=== PATIENT | female | born 1990 | race African-American/Black ===

== ENCOUNTER 2018-12-10 15:03 | Inpatient (IN) ==
[2018-12-10 16:15] LABS: BASO# 0.04 X1000 (0.0-0.2); BASO% 0.3 % (0.0-0.8); EOS# 0.01 X1000 (0.0-0.7); EOS% 0.1 % (0.0-10.0); HEMATOCRIT 30.9 % (37.0-47.0); HEMOGLOBIN 9.7 g/dL (12.0-16.0); IMM GRAN# 0.02 X1000 (0.0-0.04); IMM GRAN% 0.1 % (0.0-0.5); LYMPH# 1.64 X1000 (1.2-3.4); LYMPH% 11.1 % (20.5-51.1); MCH 27.8 PG (27-31); MCHC 31.4 g/dL (33-37); MCV 88.5 FL (81-99); MPV 11.2 FL (7.4-10.4); NEUT# 12.83 X1000 (1.4-6.5); NEUT% 86.4 % (42.2-75.2); PLT 357 X1000 (130-400); RBC 3.49 XMIL (4.2-5.4); RDW 14.5 % (11.5-14.5); WBC 14.84 X1000 (4.8-10.8)
[2018-12-10 16:18] LABS: INR 1.12; PROTIME 15.3 Seconds (11.0-16.0)
--- NOTE | 2018-12-10 16:20 | PROVIDER DOCUMENTATION ---
HPI-Respiratory General - General Chief Complaint: Shortness of Breath Stated Complaint: COUGHING BLOOD CHEST PAIN Time Seen by Provider: 12/10/18 16:03 Allergies/Adverse Reactions: Patient Allergies Allergy/AdvReac Type Severity Reaction Status Date / Time hydrocodone AdvReac migraines Verified 10/25/18 08:50 ondansetron [From Zofran] AdvReac HEADACHE Verified 10/25/18 08:50 Home Medications: Home Medication List Medication Instructions Recorded Confirmed Last Taken Type Apixaban [Eliquis] 5 mg PO BID #0 02/06/18 05/04/18 04/11/18 Rx Oxycodone HCl/Acetaminophen 1 ea PO Q6HR PRN #20 tab 02/28/18 05/04/18 04/11/18 Rx [Percocet 10-325 mg Tablet] Promethazine [Phenergan] 25 mg PO BID 03/17/18 05/04/18 04/09/18 History Gabapentin 100 mg PO TID PRN 04/11/18 05/04/18 04/10/18 History Amitriptyline [Elavil] 25 mg PO HS 05/04/18 05/04/18 Unknown History Naproxen 500 mg PO BID PRN PRN #60 tablet 06/12/18 Unknown Rx Oxycodone HCl/Acetaminophen 1 ea PO Q8H #12 tab 07/22/18 Unknown Rx [Percocet 7.5-325 mg Tablet] Promethazine [Phenergan] 25 mg PO Q6H PRN PRN #20 tab 07/22/18 Unknown Rx Metoclopramide [Reglan] 10 mg PO Q6HR PRN #40 tab 08/06/18 Unknown Rx - History of Present Illness-Resp Nature of Presenting Problem: reports cough and congestion for a few days. sob 3 days ago worsening today. no fever chills, history of PE and DVT of left leg. on eliquis. Review of Systems - Adult - REVIEW OF SYSTEMS - ADULT Constitutional: reports: no symptoms reported Eyes: reports: no symptoms reported Ears, Nose, Mouth & Throat: reports: no symptoms reported Cardiovascular: reports: no symptoms reported Respiratory: reports: no symptoms reported Gastrointestinal: reports: no symptoms reported Genitourinary: reports: no symptoms reported Musculoskeletal: reports: no symptoms reported Integumentary: reports: no symptoms reported Neurological: reports: no symptoms reported Psychiatric: reports: no symptoms reported Endocrine: reports: no symptoms reported Hematologic/Lymphatic: reports: no symptoms reported Allergic/Immunologic: reports: no symptoms reported All Other Systems: Reviewed and Negative Past History - Adult - PAST MEDICAL HISTORY-ADULT Review of Records: reports: Old Records Reviewed, Nursing Assessment Review, Medications Reviewed, Social history reviewed & non-contributory. Major Childhood Illnesses: reports: denies history Cardiovascular: reports: blood clots (on Eliquis), HTN, other (on anticoagulant Eliquis) Respiratory: reports: denies history Gastrointestinal: reports: other (perforated bowel during cesarian section in , ostomy) Obstetrical/Gynecological: reports: denies history Genitourinary: reports: kidney disease Musculoskeletal: reports: denies history Neurological: reports: denies history Psychiatric: reports: anxiety, depression Endocrine/Immune: reports: denies history Other Conditions: reports: denies history - PRIOR SURGERIES/PROCEDURES Surgical/Procedure History: reports: hysterectomy, , bowel surgery (perforated bowel during cesarian section in 2016, ostomy) - IMMUNIZATION STATUS Childhood Immunizations: See Nurse Assessment Flu Vaccine: See Nurse Assessment - FAMILY HISTORY Family History: reviewed, not pertinent - SOCIAL HISTORY Smoking: denies Substance Use: marijuana Alcohol Use Frequency: never Living Situation: family Physical Exam-General - PHYSICAL EXAM-ADULT Initial Vital Signs Reviewed: Yes - CONSTITUTIONAL General Appearance: appears well, mild distress - EYES Eyes: PERRL/EOMI, pink conjunctivae - HEAD, EARS, NOSE, MOUTH & THROAT HENMT: normocephalic/atraumatic, moist mucous membranes, normal ENT inspection - NECK Neck: non-tender, full range of motion - RESPIRATORY Respiratory: chest non-tender, lungs clear, respiratory distress, accessory muscle use. negative: decreased breath sounds - CARDIOVASCULAR Cardiovascular: normal peripheral pulses, tachycardia - GASTROINTESTINAL (ABDOMEN) Abdominal Exam: normal bowel sounds, non tender, soft - MUSCULOSKELETAL Back Exam: normal inspection, no CVA tenderness, no vertebral tenderness Extremity: normal range of motion, non-tender - SKIN Integumentary: normal color, normal turgor, warm/dry - NEUROLOGIC Neurologic: grossly normal, no motor/sensory deficits - PSYCHIATRIC Psych/Mental Status: normal thought process, oriented x 3 Progress - PLAN OF CARE/RESULTS Progress/Plan/Lab Results: Vital Signs - 8 hr 12/10/18 15:47 12/10/18 15:57 12/10/18 15:58 Temperature 100.3 F H Pulse Rate 108 H 117 H 112 H Respiratory Rate 20 46 H 41 H Blood Pressure 132/91 141/108 O2 Sat by Pulse Oximetry 95 92 L 12/10/18 16:00 12/10/18 16:10 12/10/18 16:20 Temperature Pulse Rate 113 H 115 H 113 H Respiratory Rate 32 H 22 41 H Blood Pressure O2 Sat by Pulse Oximetry 95 95 12/10/18 16:30 12/10/18 16:40 12/10/18 16:50 Temperature Pulse Rate 115 H 115 H 120 H Respiratory Rate 34 H 46 H 39 H Blood Pressure O2 Sat by Pulse Oximetry 99 100 12/10/18 17:00 12/10/18 17:10 12/10/18 17:23 Temperature Pulse Rate 119 H 124 H 130 H Respiratory Rate 33 H 28 H 25 H Blood Pressure O2 Sat by Pulse Oximetry 76 L 81 L 12/10/18 17:30 12/10/18 17:46 12/10/18 17:50 Temperature Pulse Rate 126 H 128 H 131 H Respiratory Rate 28 H 29 H 26 H Blood Pressure O2 Sat by Pulse Oximetry 12/10/18 18:00 12/10/18 18:12 12/10/18 18:20 Temperature Pulse Rate 136 H 142 H 133 H Respiratory Rate 22 21 26 H Blood Pressure O2 Sat by Pulse Oximetry 93 L 95 98 12/10/18 18:23 12/10/18 18:30 12/10/18 18:31 Temperature 99.5 F Pulse Rate 128 H 127 H Respiratory Rate 28 H 25 H Blood Pressure 146/108 O2 Sat by Pulse Oximetry 84 L 85 L 12/10/18 18:32 12/10/18 18:40 12/10/18 18:50 Temperature Pulse Rate 127 H 127 H 127 H Respiratory Rate 25 H 27 H 26 H Blood Pressure 145/111 O2 Sat by Pulse Oximetry 81 L 93 L 93 L 12/10/18 19:00 12/10/18 19:02 12/10/18 19:10 Temperature Pulse Rate 124 H 125 H 124 H Respiratory Rate 23 18 28 H Blood Pressure 144/107 O2 Sat by Pulse Oximetry 97 90 L 80 L 12/10/18 19:20 12/10/18 19:30 12/10/18 19:32 Temperature Pulse Rate 121 H 120 H 120 H Respiratory Rate 37 H 31 H 30 H Blood Pressure 143/109 O2 Sat by Pulse Oximetry 88 L 98 99 Laboratory Results - last 24 hr 12/10/18 12/10/18 12/10/18 15:32 15:32 15:32 WBC RBC Hgb Hct MCV MCH MCHC RDW Std Deviation Plt Count MPV Immature Gran % (Auto) Neut % (Auto) Lymph % (Auto) [place] % (Auto) Eos % (Auto) Baso % (Auto) Immature Gran # (Auto) Neut # (Auto) Lymph # (Auto) [place] # (Auto) Eos # (Auto) Baso # (Auto) PT 15.3 INR 1.12 Sodium 143 Potassium 3.2 L Chloride 102 Carbon Dioxide 23 L Anion Gap 18 BUN 7 L Creatinine 0.8 Estimated GFR/1.73 m2 > 60 BUN/Creatinine Ratio 9 Glucose 76 Calculated Osmolality 282 Calcium 9.9 Total Bilirubin 1.29 H AST 9 L ALT < 5 L Alkaline Phosphatase 72 Total Protein 7.4 Albumin 4.0 Globulin 3.4 Albumin/Globulin Ratio 1.2 Amylase 20 Lipase 7 L Serum , Qual Urine Source Urine Color Urine Turbidity Urine pH Ur Specific [place] Urine Protein Ur Glucose (Stick) Ur Ketones (Stick) Urine Blood Urine Nitrite Urine Bilirubin Urobilinogen Dipstick Urine Leukocytes Urine WBC (Auto) Urine RBC (Auto) U Epithel Cells (Auto) Urine Bacteria (Auto) Blood Type B POSITIVE Antibody Screen NEGATIVE 12/10/18 12/10/18 12/10/18 15:32 15:32 17:22 WBC 14.84 H RBC 3.49 L Hgb 9.7 L Hct 30.9 L MCV 88.5 MCH 27.8 MCHC 31.4 L RDW Std Deviation 14.5 Plt Count 357 MPV 11.2 H Immature Gran % (Auto) 0.1 Neut % (Auto) 86.4 H Lymph % (Auto) 11.1 L [place] % (Auto) 2.0 Eos % (Auto) 0.1 Baso % (Auto) 0.3 Immature Gran # (Auto) 0.02 Neut # (Auto) 12.83 H Lymph # (Auto) 1.64 [place] # (Auto) 0.30 Eos # (Auto) 0.01 Baso # (Auto) 0.04 PT INR Sodium Potassium Chloride Carbon Dioxide Anion Gap BUN Creatinine Estimated GFR/1.73 m2 BUN/Creatinine Ratio Glucose Calculated Osmolality Calcium Total Bilirubin AST ALT Alkaline Phosphatase Total Protein Albumin Globulin Albumin/Globulin Ratio Amylase Lipase Serum , Qual NEGATIVE Urine Source CLEAN CATCH Urine Color YELLOW Urine Turbidity CLEAR Urine pH 7.0 Ur Specific [place] 1.018 Urine Protein TRACE A Ur Glucose (Stick) NEGATIVE Ur Ketones (Stick) 60 A Urine Blood NEGATIVE Urine Nitrite NEGATIVE Urine Bilirubin NEGATIVE Urobilinogen Dipstick 2 A Urine Leukocytes NEGATIVE Urine WBC (Auto) <10 Urine RBC (Auto) <10 U Epithel Cells (Auto) <10 Urine Bacteria (Auto) NEGATIVE Blood Type Antibody Screen Orders Category Date Time Status IV Insertion ORDERED Care 12/10/18 15:18 Completed [facility] Loc DIRECTED Care 12/10/18 15:19 Active NPO Diet 12/10/18 15:19 Active CHEST-2 VIEWS [RAD] Stat Exams 12/10/18 15:18 Completed CTA [CT ANGIOGRM PULMONARY ARTERIES] [CT] Stat Exams 12/10/18 16:17 Completed AMYLASE [CHEM] Stat Lab 12/10/18 15:32 Completed CBC WITH ELECTRONIC DIFF [HEME] Stat Lab 12/10/18 15:32 Completed COMPREHENSIVE METABOLIC PANEL [CHEM] Stat Lab 12/10/18 15:32 Completed HIV AB SCREEN [HH] Stat Lab 12/10/18 19:52 Ordered LIPASE [CHEM] Stat Lab 12/10/18 15:32 Completed TEST-SERUM [PREG] Stat Lab 12/10/18 15:32 Completed PROTIME WITH INR [COAG] Stat Lab 12/10/18 15:32 Completed TYPE & SCREEN [BBK] Stat Lab 12/10/18 15:32 Completed URINALYSIS W/POSS RFLX CULT [URINALYSIS] Stat Lab 12/10/18 17:22 Completed Ketorolac [Toradol] Med 12/10/18 18:24 Discontinued 15 mg IV NOW ONE Ns + KCl 40 Meq 1,000 ml Med 12/10/18 19:53 Ordered IV 125 mls/hr Result Diagrams: 12/10/18 15:32 12/10/18 15:32 - CONSULTS/PCP/HOSPITALIST Notification #1 *Consult/PCP/Hospitalist*: Dr. Fox Time Discussed: 19:54 Consult Disposition: Admit Departure - Departure Date of Disposition Decision: 12/10/18 Time of Disposition Decision: 19:55 DIAGNOSIS: Pleural effusion, Hypokalemia Disposition: HOME 01 Certified Medical Emergency: Emergent Condition: Stable Referrals and Follow-Ups: JED SHIN [Primary Care Provider] - - Critical Care Note This patient required my direct & personal management of CC.: No Attestation - Physician/ OPAL Attestation Patient care was provided by Advanced Practice Provider:: No The physician spent face to face time with patient:: Yes Advanced Practice Provider documentation review:: Supervising physician onsite and consulted in the evaluation and care of this patient. The physician did have a face to face encounter with the patient.
[2018-12-10 16:29] LABS: AGAP 18; ALB/GLOB RATIO 1.2; ALKALINE PHOSPHATASE 72 U/L (32-104); AMYLASE 20 U/L (20-200); BUN 7 mg/dL (8-22); CALCIUM 9.9 mg/dL (8.8-10.2); CHLORIDE 102 mmol/L (98-107); COSMO 282; CREATININE 0.8 mg/dL (0.5-0.9); ESTIMATED GFR > 60; GLUCOSE 76 mg/dL (70-104); GOT 9 U/L (10-30); GPT < 5 U/L (10-36); LIPASE 7 U/L (13-60); POTASSIUM 3.2 mmol/L (3.5-5.1); SODIUM 143 mmol/L (136-145); TCO2 23 mmol/L (25-35); TOTAL BILIRUBIN 1.29 mg/dL (0.20-1.00); TOTAL PROTEIN 7.4 g/dL (6.3-8.3)
[2018-12-10 17:30] LABS: URINE SOURCE CLEAN CATCH
--- NOTE | 2018-12-10 17:34 | ED EKG INTERP ---
This chart was entered by Marilyn Alves Scribe, acting as scribe for Benjamin Roberson MD. EKG Interpretation - EKG Time of EKG reading by physician:: 15:10 EKG Read and Signed by:: Benjamin Roberson EKG Interpretation (*Must complete 3 of following elements*): Abnormal (T wave abnormality, consider lateral ischemia) Rate: 117 Rhythm: sinus tachycardia Comments: possible left atrial enlargement; Attestation - Physician/ OPAL Attestation The physician spent face to face time with patient:: No Advanced Practice Provider documentation review:: Supervising physician onsite and consulted in the evaluation and care of this patient. The physician did not have a face to face encounter with the patient. This chart was documented by the indicated scribe, (Marilyn Alves Scribe) and accurately reflects the services I performed and decisions made by me, Benjamin Roberson MD, as attested by the provider's signature.
[2018-12-10 17:59] LABS: BILIRUBIN URINE NEGATIVE (NEGATIVE); BLOOD URINE NEGATIVE (NEGATIVE); COLOR YELLOW; GLUCOSE URINE NEGATIVE (NEGATIVE); KETONE URINE 60 mg/dL (NEGATIVE); LEUKOCYTES URINE NEGATIVE (NEGATIVE); NITRITE URINE NEGATIVE (NEGATIVE); PROTEIN URINE TRACE mg/dL (NEGATIVE); SP GRAVITY URINE 1.018; TURBIDITY URINE CLEAR (CLEAR); UROBILINOGEN URINE 2 mg/dL (NORMAL)
[2018-12-10 18:01] LABS: UR EPITHELIAL CELLS <10 /HPF (<10); URINE BACTERIA NEGATIVE /HPF; URINE RBC <10 /HPF (<10); URINE WBC <10 /HPF (<10)
--- NOTE | 2018-12-10 18:18 | Diag Imaging Result Doc PS360 ---
EXAM: CHEST-2 VIEWS INDICATION: vomiting TECHNIQUE: 2 views COMPARISON: 08/06/2018 FINDINGS: There are perihilar infiltrates and infiltrates at the lung bases suggesting pulmonary edema +/- pneumonia. There is blunting of the right costophrenic angle that is also seen on the previous study indicating pleural scarring likely with a superimposed small effusion. There is a small effusion on the left as well. There is cardiomegaly that has developed since the previous study. IMPRESSION: Interval development of cardiomegaly and bilateral central and bibasilar infiltrates with small effusions suggesting pulmonary edema +/- pneumonia. Electronically signed by Pierre Olsen 12/10/2018 6:16 PM
[2018-12-10] MEDS ORDERED: TORADOL IV ONE (18:24)
--- NOTE | 2018-12-10 18:41 | Diag Imaging Result Doc PS360 ---
EXAM: CT ANGIOGRM PULMONARY ARTERIES INDICATION: PE TECHNIQUE: This exam was performed using automated exposure control, adjustment of mA or kV according to patient size, and/or use of iterative reconstruction technique. Thin section axial images and 3-D MIPS were obtained. COMPARISON: 11/03/2018 FINDINGS: There is no evidence of pulmonary embolism. There is no evidence of aortic dissection or aneurysm. There is at least mild cardiomegaly that has developed since the previous study. There are patchy infiltrates seen throughout both lungs. There is also interlobular septal thickening. This suggests pulmonary edema. This pattern is also seen in alveolar proteinosis. There are bilateral small pleural effusions and bibasilar atelectasis. Review of the upper abdomen reveals hepatic steatosis that was not clearly present on the previous study. IMPRESSION: 1.Extensive patchy groundglass infiltrates and interlobular septal thickening indicating edema. This pattern can also be seen with alveolar proteinosis. 2.Bilateral small pleural effusions. 3.Interval development of cardiomegaly. 4.Development of hepatic steatosis. 5.No evidence of pulmonary embolism. Electronically signed by Pierre Olsen 12/10/2018 6:38 PM
[2018-12-10] MEDS ORDERED: NS + KCL 40 MEQ 1,000 ML IV ONE (19:53)
--- NOTE | 2018-12-10 21:38 | HISTORY AND PHYSICAL ---
PRIMARY CARE PHYSICIAN: Dr. Virginia Bonilla. CHIEF COMPLAINT: Shortness of breath and chest pain x1 week. HISTORY OF PRESENTING ILLNESS: A 28-year-old female with a history of pulmonary embolism and DVT on anticoagulation had presented to the emergency department with 1-week history of having chest pain and shortness of breath. The patient states that she was having some fevers during this time. She was evaluated in the emergency department. She did have imaging done, which did show the possibility of pneumonia. Subsequently, she will need admission for further management. At the time of my examination, she denied any headache, nausea, vomiting, diarrhea, hemoptysis, melena, but complained of shortness of breath and chest discomfort. PAST MEDICAL HISTORY: Includes pulmonary embolism and DVT. PAST SURGICAL HISTORY: Abdominal surgery and hysterectomy. ALLERGIES: Zofran and hydrocodone. CURRENT MEDICATIONS: Include amitriptyline 25 mg p.o. at bedtime, Eliquis 5 mg p.o. b.i.d., gabapentin 100 mg p.o. t.i.d., Reglan 10 mg p.o. q.6 hours, Percocet 10/325 one p.o. q.6 hours. SOCIAL HISTORY: Ten pack years history of smoking. Denies any history of alcohol, admits to occasional marijuana use. FAMILY HISTORY: No history of coronary disease. REVIEW OF SYSTEMS: Fourteen-point review of systems as listed in HPI. Other systems negative. PHYSICAL EXAMINATION: GENERAL: Cooperative, friendly female. She is resting more comfortably now. VITAL SIGNS: Temperature 100.3 degrees, pulse 108, respirations 20, blood pressure 132/91. HEENT: Atraumatic, normocephalic. Extraocular movements intact. PERRLA. NECK: No masses. CHEST: Bibasilar rales. CARDIOVASCULAR: Regular rate and rhythm. S1 and S2. ABDOMEN: Soft. Positive bowel sounds. EXTREMITIES: No edema. NEUROLOGIC: She is awake, alert, oriented x3. GENITOURINARY: No bladder distention. SKIN: Warm. LABORATORIES AND STUDIES: WBCs 14.84, hemoglobin 9.7, hematocrit 30.9, platelets 357,000. Sodium 143, potassium 3.2, chloride 102, CO2 23, BUN is 7, creatinine 0.8, glucose is 76. Chest x-ray shows bibasilar infiltrates with small effusions suggestive of pulmonary edema plus or minus pneumonia. ASSESSMENT: This is a 28-year-old female with a history of pulmonary embolism and deep venous thrombosis who had presented to emergency department with 1-week history of chest discomfort and shortness of breath. She was evaluated in the emergency department. She had imaging done that was suspicious for pneumonia. Subsequently, she will need admission for further management. 1. Suspected pneumonia. 2. History of deep venous thrombosis and pulmonary embolus on anticoagulation. 3. Ongoing tobacco abuse. PLAN: 1. We will admit patient to medical floor with telemetry. 2. We will check blood cultures and start patient on IV antibiotics. 3. We will resume her anticoagulation. 4. Counseled patient on smoking cessation. 5. We will continue patient's anticoagulation and will suffice for deep venous thrombosis prophylaxis. 6. We will continue to follow and reassess. Make further recommendations based on the patient's clinical course. cc: Theron Fox MD
[2018-12-10] MEDS ORDERED: PHENERGAN IV PRN (23:04)
[2018-12-10] MEDS ORDERED: SODIUM CHLORIDE 0.9% INJ PRN (23:04)
[2018-12-10] MEDS: DUONEB (A & A) INH SCH (23:24)
[2018-12-10] MEDS: MORPHINE IV PRN (23:42)
[2018-12-11] MEDS: MUCINEX PO SCH ×3 (02:26→21:44)
[2018-12-11] MEDS: DUONEB (A & A) INH SCH ×6 (02:47→22:49)
[2018-12-11] MEDS: TESSALON PO PRN ×2 (02:56→07:58)
[2018-12-11 06:30] LABS: BASO# 0.04 X1000 (0.0-0.2); BASO% 0.2 % (0.0-0.8); HEMATOCRIT 29.9 % (37.0-47.0); HEMOGLOBIN 9.6 g/dL (12.0-16.0); IMM GRAN# 0.05 X1000 (0.0-0.04); IMM GRAN% 0.3 % (0.0-0.5); LYMPH# 1.02 X1000 (1.2-3.4); LYMPH% 5.7 % (20.5-51.1); MCH 28.4 PG (27-31); MCHC 32.1 g/dL (33-37); MCV 88.5 FL (81-99); MONO# 0.35 X1000 (0.11-0.59); MPV 10.9 FL (7.4-10.4); NEUT% 91.8 % (42.2-75.2); PLT 335 X1000 (130-400); RBC 3.38 XMIL (4.2-5.4); RDW 14.3 % (11.5-14.5); WBC 17.76 X1000 (4.8-10.8)
[2018-12-11 06:46] LABS: LYMPHS 10 % (21-51); SEGS 90 % (42-75)
[2018-12-11 06:48] LABS: AGAP 15; BUN 9 mg/dL (8-22); CALCIUM 8.9 mg/dL (8.8-10.2); CHLORIDE 105 mmol/L (98-107); COSMO 281; CREATININE 0.7 mg/dL (0.5-0.9); ESTIMATED GFR > 60; GLUCOSE 113 mg/dL (70-104); POTASSIUM 3.5 mmol/L (3.5-5.1); SODIUM 141 mmol/L (136-145); TCO2 21 mmol/L (25-35)
[2018-12-11] MEDS: MORPHINE IV PRN ×4 (07:58→21:10)
[2018-12-11] MEDS: LEVAQUIN 500 MG/D5W 500 MG/100 ML IVPB IV SCH (08:22)
--- NOTE | 2018-12-11 08:47 | EKG Report ---
Test Performed on : 12/10/2018 6:00:00 PM Test Reason : ED. NO EKG ORDER FOR MUSE Blood Pressure : / mmHG Vent. Rate : 135 BPM Atrial Rate : 135 BPM P-R Int : 126 ms QRS Dur : 068 ms QT Int : 316 ms P-R-T Axes : 047 043 115 degrees QTc Int : 474 ms Sinus tachycardia. Nonspecific T wave abnormality Abnormal ECG When compared with ECG of 22-JUL-2018 14:00, Vent. rate has increased BY [address] no longer elevated in Lateral leads Nonspecific T wave abnormality now evident in Lateral leads Unconfirmed Result
[2018-12-11] MEDS ORDERED: REGLAN PO PRN (09:33)
[2018-12-11] MEDS ORDERED: NEURONTIN PO PRN (09:33)
[2018-12-11] MEDS: ELIQUIS PO SCH ×2 (09:48→21:44)
[2018-12-11] MEDS ORDERED: LASIX IV SCH (10:00)
[2018-12-11 10:04] LABS: HIV ANTIBODY SCREEN SEE COMMENTS
[2018-12-11] MEDS ORDERED: LASIX IV ONE (10:48)
[2018-12-11 11:07] LABS: ALLEN TEST NO; BE -2.5 mmoll (-3.0-3.0); BLOOD TYPE ARTERIAL; HCO3-(ACT) 22.9 mmoll (20.0-26.0); METHB 1.4 % (0.0-1.5); MODALITY CANNULA; O2(CT) 12.9 mL/dL (15.0-23.0); O2HB 92.4 % (95.0-99.0); PCO2(98.6) 29 mmHg (35-45); PO2(98.6) 66 mmHg (60-100); SAMPLE BLOOD; THB 9.9 g/dL (11.5-17.4); pH(98.6) 7.46 (7.35-7.45)
--- NOTE | 2018-12-11 12:51 | PROGRESS NOTE ---
DATE: 12/11/2018 SUBJECTIVE: The patient reports feeling very short of breath. Reports a sensation of shortness of breath but no chest pain reported. OBJECTIVE: Vital Signs: Temperature 98.5 degrees, heart rate 120, respiratory rate 26, blood pressure 140/115, O2 saturation 100% on room air. General: This is a 28-year-old female lying in bed, in no acute distress. Cardiovascular: S1, S2 heard. No murmurs, gallops, or rubs. The patient is tachycardic. Respiratory: Crackles in both pulmonary bases. Patient is not using any accessory muscles or having work of breathing. Abdomen: Soft, a little bit distended, but nontender to palpation. Bowel sounds present. No organomegaly. Extremities: No clubbing, cyanosis, or edema. Peripheral pulses present in both legs. Neurological: Patient is alert and oriented x3. Moves all 4 extremities. LABORATORY DATA: White cell count 17.76, hemoglobin 9.6, hematocrit 29.9, platelets 335,000. Normal BMP. ASSESSMENT AND PLAN: 1. Acute respiratory failure. The patient reports this morning feeling very short of breath. Upon my examination, we found marked crackles in both pulmonary bases. So, at this point, what we are going to do is start Lasix 80 mg now and then 40 mg IV q.12 hours until she improves. The CT angiogram of the chest that we have done because we were suspecting pulmonary embolism reported extensive patchy ground-glass infiltrates and interlobular septal thickening indicating edema. The patient is receiving also Levaquin 30 mg IV q.24 hours. We will continue with the same management. We are going to consult Pulmonary as well. 2. History of deep venous thrombosis and pulmonary embolism. We are going to restart Eliquis at this point. 3. Tobacco abuse. Patient has been counseled to stop smoking tobacco. 4. Disposition. Patient has been sent to the [facility] unit because of this shortness of breath. We will continue to monitor this patient closely. cc: Tadeo Renee MD
--- NOTE | 2018-12-11 15:24 | ECHO REPORT ---
ORDER DATE: 12/11/2018 ECHOCARDIOGRAPHIC MEASUREMENTS: 1. Interventricular septum 1.0/ 2. Left ventricular posterior wall 1.0. 3. Diastolic diameter 4.7. 4. Left ventricular systolic diameter 4.4. 5. Left atrium 3.0. 6. Aorta 2.9. SUMMARY: 1. There is mild left atrial enlargement. 2. Aortic valve leaflets are trileaflet. 3. Pulmonic valve was normal. 4. Mitral valve was normal. 5. Tricuspid valve was normal. 6. There is no aortic stenosis or regurgitation. 7. There is mild mitral regurgitation. 8. Mild tricuspid regurgitation. Peak velocity across the tricuspid valve was 3.2 m/sec. 9. Pulmonary artery systolic pressure of 53 mmHg. 10. Left ventricular cavity size is normal with severely reduced systolic function. Estimated ejection fraction of 20%. There is severe global hypokinesis. 11. There is trivial anterior echo-free space suggestive of pericardial effusion. There is no evidence of tamponade. 12. There is no obvious intracardiac mass or thrombus seen. 13. There is diastolic dysfunction. cc: MD Tadeo Boland MD
[2018-12-11] MEDS: ELAVIL PO SCH (21:44)
[2018-12-11] MEDS: LASIX IV SCH (22:30)
[2018-12-12] MEDS: DUONEB (A & A) INH SCH ×6 (03:31→23:23)
[2018-12-12] MEDS: MORPHINE IV PRN ×5 (03:46→21:35)
[2018-12-12 04:55] LABS: ALLEN TEST YES; BE 4.2 mmoll (-3.0-3.0); BLOOD TYPE ARTERIAL; HCO3-(ACT) 28.1 mmoll (20.0-26.0); METHB 0.8 % (0.0-1.5); O2(CT) 10.7 mL/dL (15.0-23.0); PCO2(98.6) 40 mmHg (35-45); PO2(98.6) 55 mmHg (60-100); SAMPLE BLOOD; THB 8.5 g/dL (11.5-17.4); pH(98.6) 7.46 (7.35-7.45)
[2018-12-12 04:56] LABS: MODALITY ROOM AIR
[2018-12-12 05:02] LABS: O2HB 88.8 % (95.0-99.0)
[2018-12-12 07:21] LABS: BASO# 0.03 X1000 (0.0-0.2); BASO% 0.3 % (0.0-0.8); EOS# 0.28 X1000 (0.0-0.7); EOS% 2.7 % (0.0-10.0); HEMATOCRIT 28.6 % (37.0-47.0); HEMOGLOBIN 8.9 g/dL (12.0-16.0); LYMPH# 1.85 X1000 (1.2-3.4); LYMPH% 18.1 % (20.5-51.1); MCH 27.6 PG (27-31); MCHC 31.1 g/dL (33-37); MCV 88.5 FL (81-99); MONO# 0.47 X1000 (0.11-0.59); MONO% 4.6 % (1.7-9.3); MPV 11.3 FL (7.4-10.4); NEUT# 7.57 X1000 (1.4-6.5); NEUT% 74.3 % (42.2-75.2); PLT 303 X1000 (130-400); RBC 3.23 XMIL (4.2-5.4); RDW 14.3 % (11.5-14.5)
[2018-12-12 07:51] LABS: AGAP 10; BUN 11 mg/dL (8-22); CALCIUM 8.7 mg/dL (8.8-10.2); CHLORIDE 101 mmol/L (98-107); COSMO 276; CREATININE 0.8 mg/dL (0.5-0.9); ESTIMATED GFR > 60; GLUCOSE 89 mg/dL (70-104); POTASSIUM 2.7 mmol/L (3.5-5.1); SODIUM 139 mmol/L (136-145); TCO2 28 mmol/L (25-35)
[2018-12-12] MEDS: LEVAQUIN 500 MG/D5W 500 MG/100 ML IVPB IV SCH (08:03)
[2018-12-12] MEDS: LASIX IV SCH ×2 (08:04→21:36)
[2018-12-12] MEDS: ELIQUIS PO SCH ×2 (09:46→21:36)
[2018-12-12] MEDS: MUCINEX PO SCH ×2 (09:47→21:35)
[2018-12-12] MEDS ORDERED: KLOR-CON PO ONE ×2 (10:48→12:51)
[2018-12-12] MEDS ORDERED: POTASSIUM CHLORIDE 20 MEQ/SWI 20 MEQ/100 ML IVPB IV SCH (11:00)
--- NOTE | 2018-12-12 11:24 | PROGRESS NOTE ---
DATE: 12/12/2018 SUBJECTIVE: The patient reports definitely much better, not feeling short of breath at all. No chest pain noted. OBJECTIVE: Vital Signs: Temperature 99.3 degrees, heart rate 118, respiratory rate 18, blood pressure 129/88, O2 saturation 100% on 3 L nasal cannula. General Examination: This is a 28-year- old, female lying in bed, in no acute distress. Cardiovascular Examination: S1 and S2 heard. No murmurs, gallops, or rubs. Regular rate and rhythm. Respiratory Examination: Crackles in both pulmonary bases. Definitely better in comparing with yesterday. Patient is not using any accessory muscles or having work of breathing. Abdomen: Soft. Nontender to palpation. Bowel sounds present. No organomegaly. Extremities: No clubbing, cyanosis, or edema. Peripheral pulses present in both legs. Neurological Examination: The patient is alert and oriented x3. Moves 4 extremities. Laboratory Data: Repeat potassium is 2.7 today. ASSESSMENT AND PLAN: 1. Acute respiratory failure secondary to newly diagnosed cardiomyopathy. The patient was admitted to the hospital for suspicion for pneumonia. Actually, the CT of the chest did show pulmonary edema. The patient was extremely short of breath yesterday but she responded dramatically to Lasix. We have ordered an echocardiogram which basically showed an ejection fraction of 20%. On getting more information for this patient, she reported that after she gave to her 2-year-old son, she started noticing some shortness of breath that was progressively getting worse. I do not know at this point if this is peripartum cardiomyopathy. The other side, I do not think this cardiomyopathy would be secondary to any viral infection because she reports no sick contacts at this time. We have consulted cardiology for further evaluation and treatment. At this point, we will continue with Lasix 40 mg intravenous every 12 hours. 2. History of deep venous thrombosis and pulmonary edema. We will continue with Eliquis. 3. Tobacco abuse. Patient has been counseled to stop smoking. 4. Disposition. We will continue to monitor this patient closely. cc: Tadeo Renee MD
[2018-12-12] MEDS: COZAAR PO SCH (11:43)
[2018-12-12] MEDS: LOPRESSOR PO SCH ×2 (11:47→21:35)
[2018-12-12 14:09] LABS: UR AMPHETAMINES QUAL NONE DETECTED (NONE DETECT); UR BARBITUATES QUAL NONE DETECTED (NONE DETECT); UR BENZODIAZEPIN QUAL NONE DETECTED (NONE DETECT); UR CANNABINOIDS QUAL PRESUMPTIVE POSITIVE (NONE DETECT); UR COCAINE QUAL NONE DETECTED (NONE DETECT); UR METHADONE QUAL NONE DETECTED (NONE DETECT); UR OPIATES QUAL PRESUMPTIVE POSITIVE (NONE DETECT); UR OXYCODONE QUAL NONE DETECTED (NONE DETECT); UR PCP QUAL NONE DETECTED (NONE DETECT)
--- NOTE | 2018-12-12 15:58 | CONSULTATION ---
DATE OF CONSULTATION: 12/12/2018 IMPRESSION: 1. Acute systolic heart failure. 2. Cardiomyopathy, probably nonischemic. Consider possible viral etiology. 3. Prior deep vein thrombosis/pulmonary embolus. Patient on chronic anticoagulation. 4. Polysubstance abuse. RECOMMENDATIONS: 1. Diurese as you were doing. 2. Add angiotensin receptor blocking agent and beta opal. 3. Smoking cessation and cessation of polysubstance abuse recommended. HISTORY: This 28-year-old female with past history of previous complicated section/hysterectomy in March 2017, previous pulmonary embolus in September 2017, smoking and polysubstance abuse was admitted with a 1-week history of cough which was worse when she was supine. She also had orthopnea. She coughed up some red tinged sputum. There was some sharp left upper parasternal discomfort provoked by coughing. She came to the emergency room with worsening shortness of breath and orthopnea, as well as cough. Chest CT scan revealed no evidence of pulmonary embolus and suggested pulmonary edema. Echocardiography indicated left ventricular ejection fraction 20% with moderate pulmonary hypertension. She is improving with diuresis. Cardiology consultation was requested because of her cardiomyopathy and new congestive heart failure. She has history of smoking marijuana, chronic cigarette use, and previous cocaine snorting in the past. She has not used cocaine since September of this year. PAST MEDICAL HISTORY: 1. Status post previous section with her first child, who is now 12 years old. 2. Status post complicated section and hysterectomy with her second child in March 2017. She apparently had a bowel injury with her hysterectomy and required surgical repair. She had an ostomy for a period of time and was on TPN. This was apparently a complicated hospital course. She was living in [place] at the time. 3. Status post takedown of ostomy. 4. Status post pulmonary embolus/DVT in September 2017. She relates she had already been on anticoagulation of Eliquis, but reports inconsistent compliance with this. 5. History of ectopic with her first , at which time she also had a unilateral salpingo-oophorectomy with section. 6. Polysubstance abuse as outlined above. ALLERGIES: She is allergic to hydrocodone and ondansetron. MEDICATIONS PRIOR TO ADMISSION: As listed. It is noteworthy that she has been on Eliquis 5 mg p.o. b.i.d. on a long-term basis. SOCIAL HISTORY: She is single. She is disabled. She has 2 children, one age 11 going onto age 12 and the other approaching age 2. She smokes cigarettes. She smokes marijuana occasionally. She also has history of snorting cocaine; last reported use was in September of this year. FAMILY HISTORY: Negative for premature heart disease. REVIEW OF SYSTEMS: Pulmonary: Noncontributory beyond history present illness. Gastrointestinal: Noncontributory beyond history of present illness. Constitutional: Noncontributory beyond history of present illness. Remainder of review of systems negative/noncontributory beyond history of present illness with 14 total systems reviewed. PHYSICAL EXAMINATION: General: Reveals a thin adult female in no distress on supplemental oxygen per nasal cannula. Vital signs: Blood pressure 117/88, heart rate 102, oxygen saturation 96% on room air. HEENT exam: Extraocular movements appear intact. Mucous membranes are moist. Neck: Supple. Jugular venous pressure appears to be normal based on inspection of neck veins. Chest: Clear to auscultation. Cardiac Exam: Reveals a regular rate and rhythm without appreciable murmur or gallop. Abdomen: Soft. Bowel sounds normal. Extremities: Without edema. Neurologic exam: Reveals her to be alert and fully oriented. Speech is fluent. She moves all 4 extremities equally well. PERTINENT DATA: Twelve-lead EKG demonstrates sinus tachycardia and nonspecific T-wave abnormality. Echocardiography reports left ventricular ejection fraction of 20% in a setting of global hypokinesis. There is mild mitral regurgitation. Pulmonary artery systolic pressure estimated to be 53 mmHg suggesting moderate pulmonary hypertension. Laboratory data includes a white blood cell count of 10.2, hematocrit 28.6, hemoglobin 8.9, platelet count 303. Sodium 139, potassium 2.7, chloride 101, carbon dioxide 28. BUN 11, creatinine 0.8, glucose 89. cc: Ari Cole MD
[2018-12-12] MEDS: ELAVIL PO SCH (21:35)
[2018-12-13] MEDS: MORPHINE IV PRN ×5 (03:42→23:02)
[2018-12-13] MEDS: DUONEB (A & A) INH SCH ×6 (03:58→23:20)
[2018-12-13 05:18] LABS: ALLEN TEST YES; BE 7.5 mmoll (-3.0-3.0); BLOOD TYPE ARTERIAL; HCO3-(ACT) 30.8 mmoll (20.0-26.0); METHB 0.3 % (0.0-1.5); O2(CT) 13.5 mL/dL (15.0-23.0); O2HB 96.1 % (95.0-99.0); PCO2(98.6) 48 mmHg (35-45); PO2(98.6) 83 mmHg (60-100); SAMPLE BLOOD; SAO2 99.5 % (95.0-100.0); THB 9.9 g/dL (11.5-17.4); pH(98.6) 7.44 (7.35-7.45)
[2018-12-13 05:19] LABS: MODALITY ROOM AIR
[2018-12-13 07:18] LABS: BASO# 0.02 X1000 (0.0-0.2); BASO% 0.2 % (0.0-0.8); EOS# 0.49 X1000 (0.0-0.7); EOS% 5.5 % (0.0-10.0); HEMATOCRIT 32.3 % (37.0-47.0); HEMOGLOBIN 10.1 g/dL (12.0-16.0); IMM GRAN# 0.03 X1000 (0.0-0.04); IMM GRAN% 0.3 % (0.0-0.5); LYMPH# 1.96 X1000 (1.2-3.4); LYMPH% 21.9 % (20.5-51.1); MCHC 31.3 g/dL (33-37); MCV 89.5 FL (81-99); MONO# 0.43 X1000 (0.11-0.59); MONO% 4.8 % (1.7-9.3); MPV 11.2 FL (7.4-10.4); NEUT# 6.01 X1000 (1.4-6.5); NEUT% 67.3 % (42.2-75.2); PLT 378 X1000 (130-400); RBC 3.61 XMIL (4.2-5.4); RDW 14.2 % (11.5-14.5); WBC 8.94 X1000 (4.8-10.8)
[2018-12-13 07:49] LABS: AGAP 12; BUN 10 mg/dL (8-22); CALCIUM 9.1 mg/dL (8.8-10.2); CHLORIDE 99 mmol/L (98-107); COSMO 278; CREATININE 0.8 mg/dL (0.5-0.9); ESTIMATED GFR > 60; GLUCOSE 96 mg/dL (70-104); POTASSIUM 3.3 mmol/L (3.5-5.1); SODIUM 140 mmol/L (136-145); TCO2 29 mmol/L (25-35)
--- NOTE | 2018-12-13 08:00 | EKG Report ---
Test Performed on : 12/13/2018 07:12:22 AM Test Reason : dyspnea Blood Pressure : / mmHG Vent. Rate : 078 BPM Atrial Rate : 078 BPM P-R Int : 118 ms QRS Dur : 084 ms QT Int : 504 ms P-R-T Axes : -03 026 207 degrees QTc Int : 574 ms Normal sinus rhythm. Marked T wave abnormality, consider anterolateral ischemia Prolonged QT Abnormal ECG When compared with ECG of 10-DEC-2018 18:00, (Unconfirmed) Vent. rate has decreased BY 57 BPM T wave inversion now evident in Inferior leads T wave inversion now evident in Anterior leads Unconfirmed Result
[2018-12-13] MEDS: MUCINEX PO SCH ×2 (08:50→20:17)
[2018-12-13] MEDS: COZAAR PO SCH (08:50)
[2018-12-13] MEDS: ELIQUIS PO SCH ×2 (08:50→20:17)
[2018-12-13] MEDS: LOPRESSOR PO SCH ×2 (08:50→20:18)
[2018-12-13] MEDS: LASIX IV SCH ×2 (08:50→20:17)
--- NOTE | 2018-12-13 09:14 | Diag Imaging Result Doc PS360 ---
EXAM: CHEST-2 VIEWS 12/13/2018 HISTORY: pulmonary edema TECHNIQUE: PA and lateral chest COMMENT: Compared to the previous study of 12/10/2018 the pleural fluid collections have diminished considerably and there is less ill-defined pulmonary parenchymal opacity. There is still some opacification of the right lower lobe in the perihilar portion of the left upper lobe. IMPRESSION: Improved pleural effusions and pulmonary edema. Electronically signed by Calvin Caraballo 12/13/2018 9:12 AM
[2018-12-13] MEDS ORDERED: KLOR-CON PO ONE (10:30)
--- NOTE | 2018-12-13 10:58 | PROGRESS NOTE ---
DATE: 12/13/2018 SUBJECTIVE: Patient reports feeling much better. Denies any chest pain. No shortness of breath. OBJECTIVE: Vital Signs: Temperature 97.9 degrees, heart rate 92, respiratory rate 20, blood pressure 105/60 O2 saturation 100% on 2 L nasal cannula General: This is a 28-year-old female lying in bed, in no acute distress. Cardiovascular: S1, S2 heard. No murmurs, gallops, or rubs. Regular rate and rhythm. Respiratory: Minimal crackles in both pulmonary bases. Patient is not using any accessory muscles or having work of breathing. Abdomen: Soft, nontender to palpation. Bowel sounds present. No organomegaly. Extremities: No clubbing, cyanosis, or edema. Peripheral pulses present in both legs. Neurological: Patient is alert and oriented x3. Moves 4 extremities. LABORATORY DATA: Reviewed. CBC is okay. BMP reveals potassium 3.3. ASSESSMENT AND PLAN: 1. Acute respiratory failure secondary to newly diagnosed cardiomyopathy. Clinically think this patient is doing good. Patient has been started on Lasix 40 mg IV every 12 hours. The patient is also receiving losartan and metoprolol as per cardiology recommendation. I think at this point, we are going to monitor this patient closely one more day pain and if she feels tomorrow better also blood pressure and heart rate is okay she can be discharged tomorrow. 2. History of deep venous thrombosis and pulmonary wound pulmonary embolism. We will continue with [place]. 3. Tobacco abuse. Patient has been counseled to stop smoking. 4. History of polysubstance abuse, aware. DISPOSITION: If this patient is feeling much better tomorrow she can be discharged. cc: Tadeo Renee MD
--- NOTE | 2018-12-13 15:16 | PROGRESS NOTE ---
DATE: 12/13/2018 SUBJECTIVE: Patient denies shortness of breath. She does have some cough and pleuritic chest discomfort. OBJECTIVE: Blood pressure 102/68, heart rate 79, oxygen saturation 100% on nasal cannula oxygen.Neck: Jugular venous distention cannot be appreciated. Chest: Clear to auscultation bilaterally. Cardiac: Exam reveals a regular rate and rhythm without appreciable murmur or gallop. There is no evidence of peripheral edema. LABORATORY DATA: Includes a white blood cell count 8.94, hematocrit 32.3, hemoglobin 10.1, and platelet count 378,000. Sodium 140, potassium 3.3, chloride 99, carbon dioxide 29, BUN 10, and creatinine 0.8. IMPRESSION: 1. Acute systolic heart failure. Patient is improving with diuresis. 2. Cardiomyopathy probably nonischemic. 3. Previous DVT/pulmonary embolus. Patient on chronic anticoagulation. 4. Polysubstance abuse. RECOMMENDATIONS: 1. Continue diuresis with IV Lasix today and transition to oral Lasix tomorrow morning. 2. Continue angiotensin receptor blocking agent and beta-opal as tolerated. 3. Smoking cessation and cessation of polysubstance abuse has been recommended. 4. Reasonable for patient to be discharged tomorrow if clinical improvement maintained. 5. I will be happy to see her again for follow-up after hospitalization approximately 2 weeks. cc: Ari Cole MD
[2018-12-13] MEDS: ELAVIL PO SCH (20:17)
[2018-12-14] MEDS: DUONEB (A & A) INH SCH ×3 (05:37→11:33)
[2018-12-14] MEDS: MORPHINE IV PRN ×2 (06:31→11:09)
[2018-12-14 07:54] VITALS: BP 99/66
[2018-12-14] MEDS: COZAAR PO SCH (08:18)
[2018-12-14] MEDS: MUCINEX PO SCH (08:18)
[2018-12-14] MEDS: LOPRESSOR PO SCH (08:18)
[2018-12-14] MEDS: ELIQUIS PO SCH (08:18)
[2018-12-14 08:48] LABS: AGAP 18; BUN 12 mg/dL (8-22); CALCIUM 9.9 mg/dL (8.8-10.2); CHLORIDE 102 mmol/L (98-107); COSMO 279; CREATININE 0.8 mg/dL (0.5-0.9); ESTIMATED GFR > 60; GLUCOSE 69 mg/dL (70-104); POTASSIUM 4.5 mmol/L (3.5-5.1); SODIUM 141 mmol/L (136-145); TCO2 21 mmol/L (25-35)
[2018-12-14 08:58] LABS: BASO# 0.07 X1000 (0.0-0.2); BASO% 0.6 % (0.0-0.8); EOS# 0.93 X1000 (0.0-0.7); EOS% 8.6 % (0.0-10.0); HEMATOCRIT 37.2 % (37.0-47.0); HEMOGLOBIN 11.8 g/dL (12.0-16.0); IMM GRAN# 0.07 X1000 (0.0-0.04); IMM GRAN% 0.6 % (0.0-0.5); LYMPH# 2.35 X1000 (1.2-3.4); LYMPH% 21.6 % (20.5-51.1); MCH 28.3 PG (27-31); MCHC 31.7 g/dL (33-37); MCV 89.2 FL (81-99); MONO% 5.5 % (1.7-9.3); MPV 11.4 FL (7.4-10.4); NEUT# 6.85 X1000 (1.4-6.5); NEUT% 63.1 % (42.2-75.2); PLT 393 X1000 (130-400); RBC 4.17 XMIL (4.2-5.4); RDW 14.3 % (11.5-14.5); WBC 10.87 X1000 (4.8-10.8)
[2018-12-14] MEDS ORDERED: LASIX PO SCH (09:00)
--- NOTE | 2018-12-14 14:54 | DISCHARGE SUMMARY ---
ADMISSION DATE: 12/10/2018 DISCHARGE DATE: 12/14/2018 ADMISSION DIAGNOSIS: 1. Suspected pneumonia. 2. History of deep venous thrombosis, pulmonary emboli on anticoagulation. 3. Ongoing tobacco abuse. DISCHARGE DIAGNOSIS: 1. Acute respiratory failure secondary to newly diagnosed cardiomyopathy. Was started on Lasix, losartan, metoprolol. Cardiology followed. 2. History of deep venous thrombosis, pulmonary emboli on Eliquis. 3. Tobacco abuse, 3-6 minutes used to discuss and advise the patient on smoking cessation. 4. History of polysubstance abuse. CONSULTATIONS: Ari Cole MD with Cardiology. SURGERIES OR PROCEDURES: None. HOSPITAL COURSE: On 12/10/2018 the night of, Ms. Ketan Gunn, 28-year-old female, presented with complaints of shortness of breath and chest pain for about 1 week. She stated that she was having some subjective fevers during that time. Evaluated in the ER, had imaging which showed a possibility of pneumonia, and she was admitted for further management. Eventually, it is realized that the infiltrates were more indicative of pulmonary edema and she also had some small pleural effusions and development of cardiomegaly. There was no pulmonary emboli but she underwent an echocardiogram, which revealed an ejection fraction that was severely reduced down to 20% along with severe global hypokinesis and pulmonary artery hypertension with a systolic pressure of 53 mmHg. It also showed a trivial anterior echo-free space suggesting pericardial effusion but no evidence of tamponade, and she had diastolic dysfunction as well. So Dr. Cole was consulted with Cardiology. He diagnosed her with acute systolic heart failure secondary to probable nonischemic cardiomyopathy with a viral etiology consideration and recommended to diurese, add an angiotensin receptor blocking agent and a beta-opal and also recommended smoking cessation and polysubstance abuse cessation. The acute systolic heart failure started to resolve and improve with diuresis. We wanted her to start on oral Lasix today from IV Lasix the last couple of days and Cardiology said they would seen her in a 2 week followup. She denied shortness of breath, apparently there is still a little pleuritic chest pain and some cough but vitals are stable and she is much improved and is deemed appropriate for discharge home. DISCHARGE VITAL SIGNS: Temperature 97.3, heart rate 77, respiratory rate 20, blood pressure 110/79, O2 saturation 100% on room air. LAB DATA: White blood cells 10,000, hemoglobin 11, hematocrit 37, platelet count 393. Sodium 141, potassium 4.5, BUN 12, creatinine 0.8, glucose was 69. Urine drug screen was positive for opiates and cannabinoids. Opiates was probably from us as this was ordered a couple days after admission. She had HIV virus testing, which was nonreactive. Blood cultures were negative. PERTINENT IMAGING: On 12/10, she had a chest x-ray, which showed interval development of cardiomegaly and bilateral central bibasilar infiltrates with small effusion suggesting pulmonary edema plus or minus pneumonia. She also had pulmonary arteriogram, which showed extensive patchy ground-glass infiltrates and interlobular septal thickening indicating edema, also pattern could be seen with alveolar proteinosis. Bilateral small pleural effusions. Interval development of cardiomegaly, development hepatic steatosis, and no evidence of pulmonary embolism. On 11/21/2018, she had an echocardiogram, showed mild left atrial enlargement, mild mitral regurgitation, mild tricuspid regurgitation, pulmonary artery hypertension with a systolic pressure of 53 mmHg. LV size is normal but severely reduced systolic function, estimated EF of 20% with severe global hypokinesis, and also trivial anterior echo-free space suggestive of pericardial effusion without evidence of tamponade, and there is diastolic dysfunction. Chest x-ray on the : Improved pleural effusions and pulmonary edema. EKG on the : Sinus tachycardia, rate 117, another one on the same day sinus tachycardia, rate 135, QTc was 474. EKG from the : Normal sinus rhythm, rate 78, QTc is 574, T wave inversion in inferior and anterior leads. DISCHARGE DIET: Heart healthy. DISCHARGE ACTIVITY: As tolerated. DISCHARGE DISPOSITION: Follow up in [address] Cole, Cardiology. DISCHARGE INSTRUCTIONS: If your condition changes, contact your physician or you can return to the emergency department. Changes may include but not limited to shortness of breath, increased fatigue, excessive bleeding, unexplained weight loss or gain, unmanageable pain, signs or symptoms of infection. Other signs to look for would be signs of systolic heart failure, shortness of breath, coughing up pink foam or copious amounts of clear foam, swelling in the lower extremities, palpitations, increased weight gain that is sudden which would indicate fluid weight. To take discharge medications as prescribed, and please follow up with Dr. Cole. DISCHARGE MEDICATIONS: 1. Elavil 25 mg p.o. nightly. 2. Neurontin 100 mg p.o. t.i.d. p.r.n. 3. Reglan 10 mg p.o. every 6 hours p.r.n. 4. Cozaar 25 mg p.o. daily. 5. Eliquis 5 mg p.o. twice daily. 6. Lasix 40 mg p.o. daily. 7. Lopressor 12.5 mg p.o. twice daily. 8. Phenergan 25 mg p.o. every 6 hours p.r.n. 9. Ultram 50 mg p.o. every 4 hours p.r.n. DISCHARGE DISPOSITION: Home. Dictated by ALVIN Odom for Tadeo Renee MD Addendum: Patient seen and examined by myself. Agree with ALVIN note. It reflects my assessment and plan. Patient is being discharged in stable condition. Will be seen by electronic court recorder in two weeks. cc: ALVIN Odom MD [facility]
== END 2018-12-14 15:11 | disposition home health service (06) | DRG 291 ==
LOC: ED 15:03 → SUATTDRO 22:20 → 3N 22:20
PROVIDERS: ATTEND Internal Medicine
CPT/HCPCS: 71020; 71046; 71275; 80048; 80053; 80101; 80301; 80307; 80324; 80345; 80346; 80353; 80358; 80361; 80365; 81001; 82150; 82805; 83690; 83735; 83880; 83992; 84132; 84145; 84703; 85025; 85610; 86701; 86850; 86900; 86901; 87040; 87389; 93005; 93010; 93306; 94640; 94760; 94761; 96365; 96366; 96375; 99285; A9270; G0431; G0434; G0479; G0480; J1885; J1940; J1956; J2270; J3480; Q9967